=== PATIENT | female | born 1985 | race Hispanic/Latino ===

== ENCOUNTER 2019-01-12 09:08 | Emergency (ER) | payer MEDICAID, SELFPAY ==
[2019-01-12 09:59] LABS: #Basophils 0.1 thou/uL (0.0-0.2); #Eosinphils 0.1 thou/uL (0.0-0.7); #Lymphocytes 3.6 thou/uL (1.20-3.40); #Monocytes 0.6 thou/uL (0.11-0.59); #Neutrophils 7.8 thou/uL (1.40-6.50); %Basophils 0.6 % (0.0-1.0); %Eosinophils 0.9 % (0.0-10.0); %Lymphocytes 29.6 % (21.0-51.0); %Monocytes 4.9 % (0.0-10.0); Hemoglobin 13.5 g/dL (12.0-16.0); Mean Corpuscular HGB CONC 34.6 g/dL (32.0-36.0); Mean Corpuscular Hemoglobin 31.2 pg (27.0-31.0); Mean Corpuscular Volume 90.2 fL (78.0-98.0); Mean Platelet Volume 6.6 fL (7.4-10.4); Platelet Count 362 thou/uL (130-400); RBC Distribution Width 10.7 % (11.5-14.5); Red Blood Cell (RBC) Count 4.32 mill/uL (4.20-5.40); White Blood Cell (WBC) Count 12.2 thou/uL (4.8-10.8)
[2019-01-12 10:19] LABS: ALT (SGPT) 10 U/L (8-55); AST (SGOT) 10 U/L (5-34); Albumin 4.3 g/dL (3.5-5.0); Alkaline Phosphatase 76 U/L (40-150); Anion Gap 13 mmol/L (10-20); BUN (Urea Nitrogen) 6 mg/dL (7.0-18.7); Bilirubin, Total 0.2 mg/dL (0.2-1.2); Calc. Creatinine Clearance 0 mL/min (70-130); Calcium 10.1 mg/dL (7.8-10.44); Carbon Dioxide 23 mmol/L (22-29); Chloride 103 mmol/L (98-107); Estimated GFR-MDRD Greater than 90; Globulin 3.4 g/dL (2.4-3.5); Glucose 93 mg/dL (70-105); Lipase 21 U/L (8-78); Protein, Total 7.7 g/dL (6.0-8.3); Sodium 135 mmol/L (136-145)
[2019-01-12 10:47] LABS: Bilirubin Negative (Negative); Blood, Urine Negative (Negative); Clarity CLEAR (Clear); Glucose, Urine (Dipstick) Negative (Negative); Leukocyte Small (Negative); Nitrite Negative (Negative); Protein, Urine (Dipstick) Negative (Neg-Trace); Specific Gravity, Urine 1.006 (1.002-1.036); Urobilinogen 0.2 mg/dL (0.2-1.0)
[2019-01-12 10:50] LABS: Bacteria/HPF 1+ HPF (None Seen); Hyaline Casts/LPF 0-3 HYALINE CAST LPF (0-3 Hyaline); Pathc Cast-AUWi Flag 0.13 (0-2.49); RBC/HPF 0-3 HPF (0-3)
--- NOTE | 2019-01-12 12:15 | ULT ---
Exam: Pelvic ultrasound HISTORY: right lower abdominal pain. Positive beta DC. TECHNIQUE: Endovaginal and transabdominal imaging of the pelvis is formed. Ovaries are interrogated with grayscale, color flow, Doppler imaging spectral waveform analysis FINDINGS: Uterus is identified, without myometrial masses. Uterus measures 7.9 x 12.3 x 5.9 cm. In the endometrium is a gestational sac, yolk sac and pole. [place]-rump length is 2.31 cm corres ponding to gestational age of 9 weeks 0 days. Small subchorionic hemorrhage is noted. heart tones with a rate between 175-182 bpm Anechoic focus in the right ovary may represent a corpus luteal cyst measuring 1.7 x 1.5 x 1.6 cm. Ov erall the right ovary measures 2.8 x 2.6 x 1.9 cm. Left ovary has a normal echotexture measuring 1.2 x 2.1 x 1.0 cm. Ovarian Doppler: Vascular flow to both ovaries. IMPRESSION: 1. Single intrauterine gestation. Gestational age by crown-rump length is 9 weeks 0 days. 2. Small subchorionic hemorrhage. 2. Probable corpus luteal cyst in the right ovary.
== END 2019-01-12 12:14 | disposition home or self-care (01) ==
LOC: ERS 09:08
DX: O99.89 Other specified diseases and conditions complicating pregnancy, childbirth and the puerperium (principal); R82.71 Bacteriuria; R10.30 Lower abdominal pain, unspecified; O20.8 Other hemorrhage in early pregnancy; Z3A.09 9 weeks gestation of pregnancy
CPT/HCPCS: 36415; 76856; 80053; 81003; 81015; 83690; 84702; 85025; 86900; 86901